=== PATIENT | male | born 1985 | race Two or more races ===

== ENCOUNTER 2021-03-27 22:25 | Emergency (ER) | payer OTHER ==
[2021-03-27 22:58] LABS: BILIRUBIN,URINE NEGATIVE (NEGATIVE); GLUCOSE, URINE (UA) NEGATIVE (NEGATIVE); KETONES,URINE (UA) TRACE mg/dL (NEGATIVE); LEUKOCYTE ESTERASE, URINE NEGATIVE (NEGATIVE); NITRITE,URINE NEGATIVE (NEGATIVE); OCCULT BLOOD,URINE NEGATIVE (NEGATIVE); PROTEIN,URINE NEGATIVE (NEGATIVE); UROBILINOGEN,URINE 1 (NORMAL) E.U./dL (NORMAL)
[2021-03-27 22:59] LABS: CLARITY,URINE CLEAR (CLEAR)
--- NOTE | 2021-03-27 23:49 | ED Physician Documentation ---
PD HPI ABD PAIN - Stated complaint Stated Complaint: BLOOD IN STOOL, ABD PX, CONSTIPATION - Chief complaint Chief Complaint: Abd Pain - History obtained from History obtained from: Patient - History of Present Illness Timing - onset: Yesterday Timing - details: Gradual onset Pain level now: 2 Quality: Cramping, Pain Location: All over / everywhere Improved by: Other (nothing) Worsened by: Other (no exacerbating factors) Associated symptoms: No: Fever, Nausea, Vomiting, Diarrhea, Constipation Similar symptoms before: Has not had sx before Recently seen: Not recently seen - Additional information Additional information: visiting from [place]. C/O generalized abdominal discomfort since yesterday with cramping pain. He feel constipated and thus took dulcolax, had no BM yesterday but had loose, watery, blood-tinged BM today. He is COVID vaccinated. Review of Systems Constitutional: reports: Fever (in ED, but was not aware of having fever). denies: Chills, Sweats Cardiac: reports: Reviewed and negative Respiratory: reports: Reviewed and negative GI: reports: Abdominal Pain, Diarrhea, Bloody / black stool. denies: Nausea, Vomiting, Constipation : denies: Dysuria, Frequency PD PAST MEDICAL HISTORY - Present Medications Home Medications: Ambulatory Orders Medication Instructions Recorded Confirmed Azithromycin [Zithromax] 500 mg PO DAILY #8 tablet 03/28/21 - Allergies Allergies/Adverse Reactions: Allergies Allergy/AdvReac Type Severity Reaction Status Date / Time No Known Drug Allergies Allergy Verified 03/27/21 22:45 Results - Vitals Vitals: Oxygen O2 Source Room air - Labs Labs: Laboratory Tests 03/27/21 03/28/21 03/28/21 22:51 00:05 00:05 WBC 7.2 RBC 4.94 Hgb 14.9 Hct 42.8 MCV 86.6 MCH 30.2 MCHC 34.8 RDW 12.1 Plt Count 231 MPV 9.4 Neut # (Auto) 5.0 Lymph # (Auto) 1.7 Shannon # (Auto) 0.3 Eos # (Auto) 0.1 Baso # (Auto) 0.0 Absolute Nucleated RBC 0.00 Nucleated RBC % 0.0 Sodium 130 L Potassium 3.8 Chloride 98 L Carbon Dioxide 24 Anion Gap 8.0 BUN 17 Creatinine 1.0 Estimated GFR (MDRD) 86 L Glucose 105 H Calcium 8.1 L Total Bilirubin 0.7 AST 22 ALT 24 Alkaline Phosphatase 100 Total Protein 8.0 Albumin 3.9 Globulin 4.1 Albumin/Globulin Ratio 1.0 Lipase 45 Urine Color YELLOW Urine Clarity CLEAR Urine pH 6.0 Ur Specific [place] 1.020 Urine Protein NEGATIVE Urine Glucose (UA) NEGATIVE Urine Ketones TRACE Urine Occult Blood NEGATIVE Urine Nitrite NEGATIVE Urine Bilirubin NEGATIVE Urine Urobilinogen 1 (NORMAL) Ur Leukocyte Esterase NEGATIVE Ur Microscopic Review NOT INDICATED Urine Culture Comments NOT INDICATED - Rads (name of study) CT A/P with IV contrast Radiology: Prelim report reviewed, See rad report PD MEDICAL DECISION MAKING - ED course Complexity details: reviewed results, re-evaluated patient, considered differential, d/w patient ED course: unable to provide stool sample during ED stay. Elevated WBC and febrile with blood-tinged stool since yesterday, will treat for enteric (presume bacterial) fever with zithromax 500mg PO QD x 5 days Departure - Departure Disposition: 01 Home, Self Care Clinical Impression: Enteritis Condition: Good Instructions: ED Diarrhea Bacterial Prescriptions: Azithromycin [Zithromax] 500 mg PO DAILY #8 tablet Print Language: Mohawk Discharge Date/Time: 03/28/21 03:40
[2021-03-28] MEDS: ACETAMINOPHEN 325 MG TABLET PO STA (00:09)
[2021-03-28 00:19] LABS: BASOPHILS % (AUTO) 0.4 %; EOSINOPHILS # (AUTO) 0.1 10^3/uL (0.0-0.7); EOSINOPHILS % (AUTO) 0.8 %; HCT - HEMATOCRIT 42.8 % (42.0-52.0); HGB - HEMOGLOBIN 14.9 g/dL (14.0-18.0); LYMPHOCYTES # (AUTO) 1.7 10^3/uL (1.5-3.5); LYMPHOCYTES % (AUTO) 24.1 %; MEAN CORPUSCULAR HEMOGLOBIN 30.2 pg (27.0-31.0); MEAN CORPUSCULAR HGB CONC 34.8 g/dL (32.0-36.0); MEAN CORPUSCULAR VOLUME 86.6 fL (80.0-94.0); MEAN PLATELET VOLUME 9.4 fL (7.4-11.4); MONOCYTES # (AUTO) 0.3 10^3/uL (0.0-1.0); MONOCYTES % (AUTO) 4.7 %; NEUTROPHILS % (AUTO) 69.6 %; PLT - PLATELET COUNT 231 10^3/uL (130-450); RED BLOOD COUNT 4.94 10^6/uL (4.70-6.10); RED CELL DISTRIBUTION WIDTH 12.1 % (12.0-15.0); WHITE BLOOD COUNT 7.2 x10^3/uL (4.8-10.8)
[2021-03-28 00:28] LABS: ALBUMIN 3.9 g/dL (3.2-5.5); BILIRUBIN,TOTAL 0.7 mg/dL (0.2-1.0); CALCIUM 8.1 mg/dL (8.5-10.3); POTASSIUM 3.8 mmol/L (3.5-5.0)
[2021-03-28] MEDS ORDERED: IOVERSOL 320 100 ML VIAL IVP ONE (00:29)
[2021-03-28] MEDS: IOVERSOL 320 100 ML VIAL IVP ONE (01:02)
[2021-03-28 02:55] VITALS: BP 106/64
[2021-03-28] MEDS: AZITHROMYCIN 250 MG TABLET PO STA (03:36)
--- NOTE | 2021-03-28 09:32 | CT Report ---
PROCEDURE: Abdomen/Pelvis W INDICATIONS: LLQ pain, BRBPR, febrile CONTRAST: IV CONTRAST: Optiray 320 ml: 100 PO CONTRAST: *NO PO CONTRAST TECHNIQUE: After the administration of IV contrast, 5 mm thick sections acquired from the diaphragms to the symp hysis. 5 mm thick coronal and sagittal reformats were acquired. For radiation dose reduction, the f ollowing was used: automated exposure control, adjustment of mA and/or kV according to patient size. COMPARISON: None. FINDINGS: Image quality: Excellent. ABDOMEN: Lung bases: Minimal dependent atelectasis can be seen. Heart size is normal. Solid organs: Liver and spleen are normal in size and enhancement. Gallbladder wall does not appear thickened. Biliary system is non dilated. Pancreas enhances normally. No adrenal nodules. Kidn eys demonstrate normal size and enhancement, without hydronephrosis. Peritoneum and bowel: Bowel loops demonstrate normal wall thickness and caliber. A mildly increased burden of stool can be seen within the colon. No free fluid or air. A normal appendix is incidentall y noted. Nodes and vessels: No retroperitoneal or mesenteric adenopathy by size criteria. Aorta and inferior vena cava are normal in size. Miscellaneous: A mild fat-containing periumbilical hernia is seen. PELVIS: Genitourinary: Bladder wall thickness is normal. Miscellaneous: No inguinal hernias or adenopathy. Bones: No suspicious bony lesions. No vertebral body compression fractures. IMPRESSION: There is a mildly increased amount of stool seen within the colon, which is consistent w ith the given history of constipation. Incidental note is made of: Normal appendix Fat-containing periumbilical hernia Note: No significant discrepancy from the preliminary report. Reviewed by: Lino Rose MD on 03/28/2021 8:30 AM TERE Approved by: Lino Rose MD on 03/28/2021 8:30 AM TERE Station ID: [id number]
== END 2021-03-28 03:40 | disposition home or self-care (01) ==
LOC: EDBD → ED 22:25
DX: K52.9 Noninfective gastroenteritis and colitis, unspecified (principal)
CPT/HCPCS: 36415; 74177; 80053; 81003; 83690; 85025; 99284; A9270; Q9967; 81001; 87086